=== PATIENT | male | born 1985 | race Caucasian/White ===

== ENCOUNTER 2017-06-27 12:53 | Emergency (ER) | payer SELFPAY ==
[~2017-06-27] VITALS: Ht 172.7 cm; Wt 84.1 kg
[~2017-06-27 12:53] MED LIST: NORCO 325 MG-51 TAB PO; PREDNISONE10 MG PO; PREDNISONE20 MG PO
[2017-06-27 12:58] VITALS: BP 121/62; TEMP 98.1
[2017-06-27] MEDS ORDERED: PREDNISONE20 MG PO (14:48)
[2017-06-27] MEDS ORDERED: FLEXERIL 1010 MG/TAB PO (14:48)
[2017-06-27 14:55] VITALS: PULSE 88
== END 2017-06-27 14:56 | disposition home or self-care (01) ==
LOC: COL.ER 12:53
DX: G89.29 Other chronic pain (principal); M25.551 Pain in right hip
CPT/HCPCS: J1885; J3360

== ENCOUNTER 2018-01-09 19:42 | Emergency (ER) | payer SELFPAY ==
[~2018-01-09] VITALS: Ht 172.7 cm; Wt 95.9 kg
[~2018-01-09 19:42] MED LIST changes: +FLEXERIL 1010 MG/TAB PO
[2018-01-09 19:44] VITALS: TEMP 98.9
[2018-01-09 20:51] LABS: BASO % 0.3 % (0.0-2.0); EOS # 0.1 (0.0-0.7); EOS % 1.3 % (0-4.0); GRAN % 56.6 % (42.2-75.2); HEMATOCRIT 46.7 % (42.0-52.0); HEMOGLOBIN 16.7 g/dl (13.5-18.0); LYMPH % 33.6 % (20.0-51.0); MEAN CELL VOLUME 88 fl (80.0-100.0); MEAN CORPUSCULAR HEMOGLOBIN 32 pg (27.0-31.0); MEAN CORPUSCULAR HGB CONC 36 g/dl (33.0-37.0); MEAN PLATELET VOLUME 10.2 fl (7.4-10.4); MONO # 0.7 (0.1-0.6); MONO % 7.6 % (1.7-9.3); PLATELET COUNT 188 K/mm3 (130-400); RED BLOOD COUNT 5.31 M/mm3 (4.20-5.60)
[2018-01-09 21:03] LABS: ALANINE AMINOTRANSFERASE 39 U/L (21-72); ALBUMIN 4.9 gm/dL (3.5-5.0); ALKALINE PHOSPHATASE 49 U/L (50-136); ANION GAP 10 mmol/L (7-16); AST,SGOT 24 U/L (15-37); BILIRUBIN,TOTAL 0.4 mg/dL (0.0-1.0); BLOOD UREA NITROGEN 14 mg/dL (9-20); CALCIUM 9.5 mg/dL (8.4-10.2); CARBON DIOXIDE 27 mmol/L (22-30); CHLORIDE 101 mmol/L (98-107); CREATININE, serum 0.86 mg/dL (0.66-1.25); GLUCOSE 99 mg/dL (74-106); LIPASE 43 U/L (23-300); POTASSIUM 4.1 mmol/L (3.4-5.0); SODIUM 138 mmol/L (137-145); TOTAL PROTEIN 7.5 gm/dL (6.4-8.2)
[2018-01-09 21:27] LABS: TROPONIN-I < 0.012 ng/mL (0.000-0.034)
[2018-01-09 23:00] VITALS: BP 124/74; PULSE 61
[2018-01-09] MEDS ORDERED: ATIVAN 0.50.5 MG/TAB PO (23:01)
== END 2018-01-09 23:17 | disposition home or self-care (01) ==
LOC: COL.ER 19:42
PROVIDERS: Emergency Medicine
DX: F41.9 Anxiety disorder, unspecified (principal); R07.89 Other chest pain; F17.210 Nicotine dependence, cigarettes, uncomplicated; Z82.49 Family history of ischemic heart disease and other diseases of the circulatory system; Z79.52 Long term (current) use of systemic steroids

== ENCOUNTER 2019-05-13 12:24 | Emergency (ER) | payer SELFPAY ==
[~2019-05-13] VITALS: Ht 172.7 cm; Wt 113.6 kg
[~2019-05-13 12:24] MED LIST changes: +ATIVAN 0.50.5 MG/TAB PO
[2019-05-13 12:37] VITALS: BP 125/72; TEMP 98.4
[2019-05-13] MEDS ORDERED: CATAPRES 0.1MG0.1 MG PO (13:34)
[2019-05-13 13:54] VITALS: PULSE 65
== END 2019-05-13 13:56 | disposition home or self-care (01) ==
LOC: COL.ER 12:24
DX: M72.2 Plantar fascial fibromatosis (principal); Z87.891 Personal history of nicotine dependence

== ENCOUNTER 2020-08-24 08:09 | Emergency (ER) | payer SELFPAY ==
[~2020-08-24] VITALS: Ht 172.7 cm; Wt 113.6 kg
[~2020-08-24 08:09] MED LIST changes: +CATAPRES 0.1MG0.1 MG PO
[2020-08-24 08:13] VITALS: TEMP 97.7
[2020-08-24 09:12] LABS: HEMATOCRIT 49.3 % (42.0-52.0); HEMOGLOBIN 16.8 g/dl (13.5-18.0); RED BLOOD COUNT 5.54 M/mm3 (4.20-5.60)
[2020-08-24 09:13] LABS: BASO % 0.3 % (0.0-2.0); EOS # 0.1 (0.0-0.7); EOS % 0.9 % (0-4.0); GRAN # 8.7 (1.4-6.5); GRAN % 75.1 % (42.2-75.2); LYMPH # 1.9 (1.2-3.4); LYMPH % 16.2 % (20.0-51.0); MEAN CELL VOLUME 89 fl (80.0-100.0); MEAN CORPUSCULAR HEMOGLOBIN 30 pg (27.0-31.0); MEAN CORPUSCULAR HGB CONC 34 g/dl (33.0-37.0); MEAN PLATELET VOLUME 10.1 fl (7.4-10.4); MONO # 0.8 (0.1-0.6); PLATELET COUNT 235 K/mm3 (130-400); REDCELL DISTRIBUTION WIDTH-CV 12.7 % (11.5-14.5)
[2020-08-24 09:24] LABS: ALBUMIN 5.2 gm/dL (3.5-5.0); CALCIUM 9.8 mg/dL (8.4-10.2); CREATININE, serum 0.75 (0.66-1.25); POTASSIUM 4.1 mmol/L (3.4-5.0); TOTAL PROTEIN 9.1 gm/dL (6.4-8.2)
[2020-08-24 09:39] LABS: C-REACTIVE PROTEIN 14.4 mg/dL (0.0-0.9)
[2020-08-24] MEDS ORDERED: CIPRO 500MG TA500 MG PO (10:14)
[2020-08-24] MEDS ORDERED: FLAGYL500 MG PO (10:14)
[2020-08-24 10:42] VITALS: BP 138/88; PULSE 6
== END 2020-08-24 10:45 | disposition home or self-care (01) ==
LOC: COL.ER 08:09
PROVIDERS: Emergency Medicine
DX: K57.92 Diverticulitis of intestine, part unspecified, without perforation or abscess without bleeding (principal)
CPT/HCPCS: J1885; J7030; Q9967

== ENCOUNTER 2020-11-09 12:01 | Emergency (ER) | payer SELFPAY ==
[~2020-11-09] VITALS: Ht 172.7 cm; Wt 118.2 kg
[~2020-11-09 12:01] MED LIST changes: +CIPRO 500MG TA500 MG PO; +FLAGYL500 MG PO
[2020-11-09 12:10] VITALS: BP 126/79; PULSE 63; TEMP 97.9
[2020-11-09] MEDS ORDERED: FLEXERIL 1010 MG/TAB PO (14:20)
[2020-11-09] MEDS ORDERED: MEDROL 4MG DOSPA4 MG PO (14:20)
== END 2020-11-09 14:29 | disposition home or self-care (01) ==
LOC: COL.ER 12:01
DX: M54.5 Low back pain (principal); F17.210 Nicotine dependence, cigarettes, uncomplicated
CPT/HCPCS: J1885

== ENCOUNTER 2021-05-04 07:03 | Emergency (ER) | payer SELFPAY ==
[~2021-05-04] VITALS: Ht 172.7 cm; Wt 109.1 kg
[~2021-05-04 07:03] MED LIST changes: +MEDROL 4MG DOSPA4 MG PO
[2021-05-04 07:09] VITALS: BP 126/82; TEMP 97.9
[2021-05-04] MEDS ORDERED: NORCO 325 MG-51 TAB PO (07:32)
[2021-05-04] MEDS ORDERED: AMOXICILLIN875 MG PO (07:32)
[2021-05-04 07:42] VITALS: PULSE 88
== END 2021-05-04 07:40 | disposition home or self-care (01) ==
LOC: COL.ER 07:03
DX: K02.9 Dental caries, unspecified (principal); M54.5 Low back pain; F17.210 Nicotine dependence, cigarettes, uncomplicated

== ENCOUNTER 2022-07-08 13:43 | Emergency (ER) | payer SELFPAY ==
[~2022-07-08] VITALS: Ht 172.7 cm; Wt 68.2 kg
[~2022-07-08 13:43] MED LIST changes: +AMOXICILLIN875 MG PO
[2022-07-08 14:08] VITALS: BP 130/96; TEMP 98
[2022-07-08 15:14] VITALS: PULSE 62
== END 2022-07-08 15:14 | disposition home or self-care (01) ==
LOC: COL.ER 13:43
DX: S93.491A Sprain of other ligament of right ankle, initial encounter (principal); S90.31XA Contusion of right foot, initial encounter; Z28.310 Unvaccinated for COVID-19; X50.1XXA Overexertion from prolonged static or awkward postures, initial encounter; Y92.59 Other trade areas as the place of occurrence of the external cause; Y99.0 Civilian activity done for income or pay; Y92.096 Garden or yard of other non-institutional residence as the place of occurrence of the external cause